=== PATIENT | male | born 1945 | race Caucasian/White ===

== ENCOUNTER → 2016-12-09 12:30 | Outpatient (CLI) | payer MEDICARE | END | disposition home or self-care (01) | LOC: D.CT 12:30 | DX: R91.8 Other nonspecific abnormal finding of lung field (principal) ==

== ENCOUNTER 2017-04-03 01:42 | Observation (INO) | payer MEDICARE ==
[~2017-04-03] VITALS: Ht 182.9 cm; Wt 118.2 kg
[2017-04-03 02:31] LABS: BASOPHILS 0.1 % (0-2); EOSINOPHILS 1.4 % (0-7); HEMATOCRIT 42.9 % (42.0-54.0); HEMOGLOBIN 14.2 g/dL (13.5-17.5); IMMATURE GRANULOCYTES 0.2 % (0-5); LYMPHOCYTES 10.7 % (15-50); MCH 32.4 pg (26.0-34.0); MCHC 33.1 g/dL (31.0-37.0); MCV 97.9 fL (80.0-100.0); MEAN PLATELET VOLUME 10.3 fL (7.4-10.4); MONOCYTES 9.5 % (2-11); NEUTROPHILS 78.1 % (40-80); PLATELET COUNT 273 10x3/uL (130-400); RBC 4.38 10x6/uL (4.20-6.10); RDW 13.4 % (11.5-14.5); WBC 13.9 10x3/uL (4.8-10.8)
[2017-04-03 02:59] LABS: ALBUMIN 3.9 g/dL (3.4-5.0); ALKALINE PHOSPHATASE 64 U/L (46-116); ALT (SGPT) 37 U/L (10-68); BILIRUBIN - TOTAL 0.29 mg/dL (0.2-1.3); CALC OSMOLALITY 288 mosm/kg (275-300); CALCIUM 9.8 mg/dL (8.5-10.1); CARBON DIOXIDE 30.2 mmol/L (21.0-32.0); CHLORIDE - SERUM 107 mmol/L (98-107); CREATININE - SERUM 0.9 mg/dL (0.6-1.3); GLUCOSE 146 mg/dL (74-106); LIPASE 97 U/L (73-393); POTASSIUM - SERUM 3.9 mmol/L (3.5-5.1); PROTEIN - SERUM 7.1 g/dL (6.4-8.2); SODIUM 142 mmol/L (136-145); UREA NITROGEN 21 mg/dL (7-18); eGFR NON AFRICAN AMERICAN 89 mL/min (90-120)
[2017-04-03] MEDS ORDERED: DIOVAN80 MG PO (05:58)
[2017-04-03] MEDS ORDERED: FLOMAX0.4 MG PO (05:58)
[2017-04-03] MEDS ORDERED: GLUCOPHAGE1000 MG PO (05:59)
[2017-04-03] MEDS ORDERED: ZOCOR40 MG PO (05:59)
[2017-04-03] MEDS ORDERED: LANTUS INSULIN10 ML SC (06:00)
[2017-04-03] MEDS ORDERED: QVAR8.7 G1 INH (06:01)
[2017-04-03] MEDS ORDERED: XOPENEX HFA15 GM INH (06:01)
[2017-04-03] MEDS ORDERED: HUMALOG 30100 UNITS/ SC (06:02)
--- NOTE | 2017-04-03 06:31 | NUR ---
PATIENT RECIEVED FROM ER VIA STRETCHER ON 2 LPM O2 AND A LEVAQUIN DRIP. QUICK START, MED REC, ALLERGIES, AND PHARMACY. LEVAQUIN COMPLETED
--- NOTE | 2017-04-03 06:46 | NUR ---
FLUSHED PIV TO LFA. NS INFUSING AT 125ML/HR AND FAGYL IVPB INFUSING.
--- NOTE | 2017-04-03 07:20 | NUR ---
RESTING QUIELTY IN BED.
[2017-04-03 07:35] VITALS: BP 133/68; Ht 182.9 cm; Wt 118.2 kg
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
[2017-04-03 08:23] VITALS: BP 156/73
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
--- NOTE | 2017-04-03 11:00 | NUR ---
DENIES ANY NEEDS OR COMPLAINTS OF ABDOMINAL PAIN AT THIS TIME.
[2017-04-03 12:55] VITALS: BP 110/53
--- NOTE | 2017-04-03 15:08 | NUR ---
RESTING QUIETLY WITH EYES CLOSED. RESP EVEN,NONLABORED.
[2017-04-03 15:29] VITALS: BP 115/55
--- NOTE | 2017-04-03 17:00 | NUR ---
SITTING ON SIDE OF BED. DENIES ANY NEEDS AT PRESENT. DENIES ANY COMPLAINT OF ABDOMINAL PAIN AT THIS TIME.
[2017-04-03 19:00] VITALS: BP 132/67
[2017-04-04 04:55] LABS: BASOPHILS 0.1 % (0-2); EOSINOPHILS 4.8 % (0-7); HEMATOCRIT 39.9 % (42.0-54.0); HEMOGLOBIN 12.8 g/dL (13.5-17.5); LYMPHOCYTES 23.5 % (15-50); MCHC 32.1 g/dL (31.0-37.0); MCV 99.8 fL (80.0-100.0); MEAN PLATELET VOLUME 10.3 fL (7.4-10.4); MONOCYTES 12.2 % (2-11); NEUTROPHILS 59.4 % (40-80); PLATELET COUNT 267 10x3/uL (130-400); RDW 13.5 % (11.5-14.5)
[2017-04-04 05:01] LABS: WBC 7.9 10x3/uL (4.8-10.8)
[2017-04-04 05:11] LABS: ALBUMIN 3.3 g/dL (3.4-5.0); ALKALINE PHOSPHATASE 59 U/L (46-116); ALT (SGPT) 29 U/L (10-68); AMYLASE - SERUM 20 U/L (25-115); BILIRUBIN - TOTAL 0.35 mg/dL (0.2-1.3); CALC OSMOLALITY 286 mosm/kg (275-300); CALCIUM 8.7 mg/dL (8.5-10.1); CARBON DIOXIDE 29.3 mmol/L (21.0-32.0); CHLORIDE - SERUM 110 mmol/L (98-107); CREATININE - SERUM 0.8 mg/dL (0.6-1.3); GLUCOSE 138 mg/dL (74-106); LIPASE 86 U/L (73-393); MAGNESIUM - SERUM 1.9 mg/dL (1.8-2.4); PHOSPHOROUS 2.7 mg/dL (2.5-4.9); POTASSIUM - SERUM 3.7 mmol/L (3.5-5.1); PROTEIN - SERUM 6.2 g/dL (6.4-8.2); SODIUM 144 mmol/L (136-145); eGFR NON AFRICAN AMERICAN > 90 mL/min (90-120)
[2017-04-04 05:15] LABS: UREA NITROGEN 8 mg/dL (7-18)
[2017-04-04] MEDS ORDERED: FLAGYL500 MG PO (06:50)
[2017-04-04] MEDS ORDERED: LEVAQUIN750 MG PO (06:50)
--- NOTE | 2017-04-04 07:15 | NUR ---
ASSESSMENT PER FLOW SHEET.PT UP TO BEDSIDE,WITHOUT DISTRESS.CALL LIGHT IN REACH.
[2017-04-04 07:51] VITALS: BP 117/50
--- NOTE | 2017-04-04 08:44 | NUR ---
AM MEDS.IV DCD WITH CATH INTACT.DISCHARGE INSTRUCTIONS,STATES UNDERSTANDING.PT WISHES TO SHOWER
--- NOTE | 2017-04-04 09:14 | NUR ---
LEFT UNIT VIA WHEELCHAIR FOR DC HOME
== END 2017-04-04 09:14 | disposition home or self-care (01) ==
LOC: D.ER 01:42 → D.MS 05:09 → OBSVTIME 05:09 → D.MS 05:09
PROVIDERS: Emergency Medicine; ADMIT Family Medicine
DX: K52.9 Noninfective gastroenteritis and colitis, unspecified (principal); K40.90 Unilateral inguinal hernia, without obstruction or gangrene, not specified as recurrent; I10 Essential (primary) hypertension; E11.9 Type 2 diabetes mellitus without complications; J44.9 Chronic obstructive pulmonary disease, unspecified; K21.9 Gastro-esophageal reflux disease without esophagitis

== ENCOUNTER → 2017-05-23 20:42 | Outpatient (CLI) | payer MEDICARE ==
[2017-04-03 07:35] VITALS: BMI 35.3
[~2017-05-23 20:42] MED LIST: DIOVAN80 MG PO; FLAGYL500 MG PO; FLOMAX0.4 MG PO; GLUCOPHAGE1000 MG PO; HUMALOG 30100 UNITS/ SC; LANTUS INSULIN10 ML SC; LEVAQUIN750 MG PO; QVAR8.7 G1 INH; XOPENEX HFA15 GM INH; ZOCOR40 MG PO
== END | disposition home or self-care (01) ==
LOC: D.LABREF 20:42
DX: R31.9 Hematuria, unspecified (principal)

== ENCOUNTER 2018-01-20 09:09 | Emergency (ER) | payer MEDICARE ==
[2017-04-03 07:35] VITALS: BMI 35.3
== END 2018-01-20 11:15 | disposition home or self-care (01) ==
LOC: D.ER 09:09
DX: S61.211A Laceration without foreign body of left index finger without damage to nail, initial encounter (principal); W26.0XXA Contact with knife, initial encounter; Y93.89 Activity, other specified; Y92.019 Unspecified place in single-family (private) house as the place of occurrence of the external cause

== ENCOUNTER → 2018-06-16 10:05 | Outpatient (CLI) | payer MEDICARE ==
[2017-04-03 07:35] VITALS: BMI 35.3
== END | disposition home or self-care (01) ==
LOC: D.CT 06-13 11:00
DX: R91.8 Other nonspecific abnormal finding of lung field (principal)